=== PATIENT | male | born 1965 | race Caucasian/White ===

== ENCOUNTER 2020-11-11 00:16 | Day surgery (SDCO) | payer OTHER ==
[2020-11-11 00:32] LABS: BASOPHIL 0.5 % (0-2); EOSINOPHIL 0.5 % (0-5); HCT 39.6 % (42.0-52.0); HGB 13.5 g/dl (13.2-18.0); LYMPHOCYTE 8.2 % (15-48); MCH 31.5 pg (25.0-31.0); MCHC 34.1 g/dL (32.0-36.0); MCV 92.3 fL (78.0-100.0); MONOCYTE 7.3 % (0-12); MPV 9.2 fL (6.0-9.5); NRBC 0; PLT 238 K/uL (150-400); RBC 4.29 M/uL (4.70-6.00); RDW 12.8 % (11.5-14.0); WBC 16.5 K/uL (4.0-10.5)
[2020-11-11 00:49] LABS: ALBUMIN 3.6 g/dL (3.4-5.0); BILIRUBIN - TOTAL 0.5 mg/dL (0.2-1.0); BUN/CREAT RATIO (CALC) 13.5 RATIO; CREATININE 0.96 mg/dL (0.67-1.17); POTASSIUM 3.8 mmol/L (3.5-5.1); TOTAL PROTEIN 7.6 g/dL (6.4-8.2)
[2020-11-11] MEDS ORDERED: PRINIVIL10 MG PO (02:52)
[2020-11-11] MEDS ORDERED: METRONIDAZOLE250 MG PO (02:53)
[2020-11-11 03:11] LABS: MAGNESIUM 1.8 mg/dL (1.8-2.4); PHOSPHORUS 3.2 mg/dL (2.6-4.7)
[2020-11-11 03:47] LABS: BILIRUBIN NEGATIVE (NEGATIVE); BLOOD NEGATIVE Ery/uL (NEGATIVE); CLARITY CLEAR (CLEAR); COLOR YELLOW (YELLOW); GLUCOSE (U) NORMAL (NORMAL); LEUKOCYTES NEGATIVE Leu/uL (NEGATIVE); NITRITE NEGATIVE (NEGATIVE); PROTEIN NEGATIVE (NEGATIVE); SPECIFIC GRAVITY >=1.030 (1.001-1.030); UROBILINOGEN 0.2 mg/dL (0.2-1.0); pH 5.5 (5.0-9.0)
[2020-11-11] MEDS ORDERED: IBUPROFEN400 MG PO (15:39)
[2020-11-11] MEDS ORDERED: NORCO 5-325 TA1 EACH PO (15:39)
[2020-11-11] MEDS ORDERED: DULCOLAX5 MG PO (15:39)
--- NOTE | 2020-11-11 17:00 | NUR ---
11/11/20 Mr. Key and his girlfriend share a home together. He was independent in the home and community prior to admission. No discharge needs are anticipated.
== END 2020-11-11 18:50 | disposition home or self-care (01) ==
LOC: FER 00:16 → FMS 02:26
PROVIDERS: Emergency Medicine; Nurse Practitioner; ADMIT Internal Medicine
DX: K80.10 Calculus of gallbladder with chronic cholecystitis without obstruction (principal); K42.0 Umbilical hernia with obstruction, without gangrene; K40.90 Unilateral inguinal hernia, without obstruction or gangrene, not specified as recurrent; K50.90 Crohn's disease, unspecified, without complications; I10 Essential (primary) hypertension; Z20.822 Contact with and (suspected) exposure to COVID-19; Z88.2 Allergy status to sulfonamides
CPT/HCPCS: 36415; 80053; 81003; 83690; 83735; 84100; 85025; 93005; 94010; C9113; G0378; J1100; J1170; J1650; J1885; J2250; J2405; J2543; J2704; J2710; J3010; J7030; J7120; U0002